=== PATIENT | male | born 1990 | race Caucasian/White ===

== ENCOUNTER 2019-03-15 04:07 | Emergency (ER) | payer SELFPAY ==
[~2019-03-15] VITALS: Ht 167.6 cm; Wt 77.3 kg
[2019-03-15] MEDS ORDERED: MORPHINE SULFATE 10 MG/ML VIAL. SQ ONE (05:00)
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
[2019-03-15] MEDS ORDERED: HYDR-3164 PO (05:11)
[2019-03-15] MEDS ORDERED: PENI500T PO (05:11)
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
[2019-03-15 05:18] VITALS: BP 117/59
== END 2019-03-15 05:33 | disposition home or self-care (01) ==
LOC: ER 04:07
DX: S02.652A Fracture of angle of left mandible, initial encounter for closed fracture (principal); K08.409 Partial loss of teeth, unspecified cause, unspecified class; Y08.89XA Assault by other specified means, initial encounter; Y93.89 Activity, other specified; Y92.89 Other specified places as the place of occurrence of the external cause; Y99.8 Other external cause status
CPT/HCPCS: 70450; 70486; 96372; 99284; J2270